=== PATIENT | male | born 1995 | race Two or more races ===

== ENCOUNTER 2021-10-02 14:22 | Emergency (ER) | payer SELFPAY ==
[~2021-10-02] VITALS: Ht 162.6 cm; Wt 70.5 kg
[2021-10-02] MEDS ORDERED: LIDOCAINE 1% 10 ML VIAL SQ ONE (15:00)
[2021-10-02 17:32] VITALS: BP 119/73
== END 2021-10-02 17:41 | disposition home or self-care (01) ==
LOC: EMS 14:27
DX: S61.012A Laceration without foreign body of left thumb without damage to nail, initial encounter (principal); W31.89XA Contact with other specified machinery, initial encounter; Y93.89 Activity, other specified; Y92.89 Other specified places as the place of occurrence of the external cause; Y99.8 Other external cause status
CPT/HCPCS: 12002; 73140; 99283; J3490